=== PATIENT | male | born 1990 | race Caucasian/White ===

== ENCOUNTER 2016-10-29 23:42 | Emergency (ER) | payer SELFPAY ==
[~2016-10-29] VITALS: Ht 195.6 cm; Wt 95.3 kg
[2016-10-30] MEDS ORDERED: HYDROCODONE/APAP 5/325MG 1 EACH TABLET ONE (00:47)
[2016-10-30] MEDS ORDERED: HYDROCODONE/APAP 5/325MG 1 EACH TABLET PO ONE (01:00)
[2016-10-30 01:41] VITALS: BP 117/75
== END 2016-10-30 01:30 | disposition home or self-care (01) ==
LOC: ER 23:44
DX: S52.122A Displaced fracture of head of left radius, initial encounter for closed fracture (principal); V00.131A Fall from skateboard, initial encounter; Y93.51 Activity, roller skating (inline) and skateboarding; Y92.89 Other specified places as the place of occurrence of the external cause; Y99.9 Unspecified external cause status
CPT/HCPCS: 73080; 99284; A4606; Z7610